=== PATIENT | male | born 1975 ===

== ENCOUNTER 2020-11-21 13:56 | Observation (INO) | payer OTHER ==
[2020-11-21 14:47] LABS: #Basophils 0.1 10x3/uL (0.0-0.2); #Eosinphils 0.2 10x3/uL (0.0-0.5); #Neutrophils 16.4 10x3/uL (1.5-8.4); %Basophils 0.6 % (0.0-2.0); %Eosinophils 0.9 % (0.0-6.0); %Lymphocytes 6.4 % (18.0-47.0); %Monocytes 5.3 % (0.0-10.0); %Neutrophils 86.4 % (40.0-75.0); Hemoglobin 14.5 g/dL (13.5-17.5); Mean Corpuscular HGB CONC 32.1 g/dL (32.0-36.0); Mean Platelet Volume 10.2 fl (7.4-10.4); Platelet Count 365 10x3/uL (150-450); RBC Distribution Width 15.4 % (11.5-14.5); Red Blood Cell (RBC) Count 5.38 10x6/uL (4.32-5.72)
[2020-11-21 14:54] LABS: ALT (SGPT) 39 U/L (8-55); AST (SGOT) 24 U/L (5-34); Albumin 3.8 g/dL (3.5-5.0); Alkaline Phosphatase 130 U/L (40-110); Anion Gap 15 mmol/L (10-20); BUN (Urea Nitrogen) 12 mg/dL (8.9-20.6); Bilirubin, Total 0.7 mg/dL (0.2-1.2); Calc. Creatinine Clearance 0 mL/min (70-130); Calcium 9.7 mg/dL (7.8-10.44); Carbon Dioxide 29 mmol/L (22-29); Chloride 95 mmol/L (98-107); Globulin 4.1 g/dL (2.4-3.5); Glucose 119 mg/dL (70-105); Potassium 3.7 mmol/L (3.5-5.1); Protein, Total 7.9 g/dL (6.0-8.3); Sodium 135 mmol/L (136-145)
[2020-11-21 14:56] LABS: PTT 26.7 sec (22.0-33.0); Prothrombin Time 11.1 sec (9.5-12.1)
[2020-11-21] MEDS ORDERED: Ondansetron ODT 4 MG TAB PO PRN (15:15)
[2020-11-21] MEDS ORDERED: Acetaminophen 325 MG TAB PO PRN (15:15)
[2020-11-21] MEDS ORDERED: Ondansetron PF 4 MG/2 ML Vial IVP PRN (15:15)
[2020-11-21 20:00] VITALS: BMI 44.2
[2020-11-22 05:40] LABS: #Basophils 0.1 10x3/uL (0.0-0.2); #Eosinphils 0.2 10x3/uL (0.0-0.5); #Monocytes 1.1 10x3/uL (0.0-1.1); #Neutrophils 13.8 10x3/uL (1.5-8.4); %Basophils 0.7 % (0.0-2.0); %Eosinophils 1.1 % (0.0-6.0); %Lymphocytes 8.1 % (18.0-47.0); %Monocytes 6.8 % (0.0-10.0); %Neutrophils 82.6 % (40.0-75.0); Hemoglobin 14.2 g/dL (13.5-17.5); Mean Corpuscular HGB CONC 32.1 g/dL (32.0-36.0); Mean Corpuscular Hemoglobin 26.9 pg (27.0-33.0); Mean Corpuscular Volume 83.7 fl (81.2-95.1); Mean Platelet Volume 9.9 fl (7.4-10.4); Platelet Count 331 10x3/uL (150-450); RBC Distribution Width 15.7 % (11.5-14.5); Red Blood Cell (RBC) Count 5.28 10x6/uL (4.32-5.72); White Blood Cell (WBC) Count 16.7 10x3/uL (3.5-10.5)
[2020-11-22 05:57] LABS: Anion Gap 12 mmol/L (10-20); BUN (Urea Nitrogen) 10 mg/dL (8.9-20.6); Calc. Creatinine Clearance 291 mL/min (70-130); Calcium 9.6 mg/dL (7.8-10.44); Carbon Dioxide 29 mmol/L (22-29); Chloride 97 mmol/L (98-107); Glucose 118 mg/dL (70-105); Potassium 3.8 mmol/L (3.5-5.1); Sodium 134 mmol/L (136-145)
[2020-11-22] MEDS: Carvedilol 6.25 MG TAB PO SCH ×2 (09:33→21:38)
[2020-11-22] MEDS: OLANZapine 2.5 MG TAB PO SCH (09:33)
[2020-11-22] MEDS: Spironolactone 25 MG TAB PO SCH (09:34)
[2020-11-22] MEDS: Lisinopril 2.5 MG TAB PO SCH (09:34)
[2020-11-22] MEDS: Furosemide 40 MG TAB PO SCH (10:29)
[2020-11-22] MEDS: LIALDA 1.2 GM PO SCH (10:30)
[2020-11-22 13:40] LABS: SARS-CoV-2 PCR by NAA Not Detected (NotDetected)
[2020-11-23] MEDS: Lisinopril 2.5 MG TAB PO SCH (08:20)
[2020-11-23] MEDS: Furosemide 40 MG TAB PO SCH ×2 (08:21→08:22)
[2020-11-23] MEDS: OLANZapine 2.5 MG TAB PO SCH (08:21)
[2020-11-23] MEDS: Carvedilol 6.25 MG TAB PO SCH (08:22)
[2020-11-23] MEDS: Spironolactone 25 MG TAB PO SCH (08:22)
[2020-11-23] MEDS: LIALDA 1.2 GM PO SCH (08:23)
[2020-11-23 10:16] VITALS: TEMP 98.1
[2020-11-23 12:44] VITALS: BP 107/77
== END 2020-11-23 13:50 | disposition home health service (06) ==
LOC: CSHERS 13:56 → CSHTELE 19:21
PROVIDERS: ADMIT Internal Medicine; ATTEND Hospitalist
PROC: B245YZZ Ultrasonography of Left Heart using Other Contrast (ICD-10-PCS; principal; 2020-11-22)
PROC: 4A023FZ Measurement of Cardiac Rhythm, Percutaneous Approach (ICD-10-PCS; 2020-11-22)
PROC: 4A0234Z Measurement of Cardiac Electrical Activity, Percutaneous Approach (ICD-10-PCS; 2020-11-22)
DX: T82.110A Breakdown (mechanical) of cardiac electrode, initial encounter (principal); M45.9 Ankylosing spondylitis of unspecified sites in spine; E11.9 Type 2 diabetes mellitus without complications; I11.0 Hypertensive heart disease with heart failure; I50.22 Chronic systolic (congestive) heart failure; I44.7 Left bundle-branch block, unspecified; I43 Cardiomyopathy in diseases classified elsewhere; K51.90 Ulcerative colitis, unspecified, without complications; L40.9 Psoriasis, unspecified; G82.20 Paraplegia, unspecified; E78.5 Hyperlipidemia, unspecified
CPT/HCPCS: 36415; 36416; 71045; 75820; 76000; 80048; 80053; 83880; 85025; 85610; 85730; 87635; 93005; 93306; G0378; U0003; U0005